=== PATIENT | male | born 1940 | race Asian ===

== ENCOUNTER 2021-07-28 04:41 | Emergency (ER) | payer OTHER ==
[~2021-07-28] VITALS: Ht 162.6 cm; Wt 62.1 kg
--- NOTE | 2021-07-28 05:00 | NUR ---
seen by dr garcia
[2021-07-28 05:01] VITALS: BP_SYST 155
[2021-07-28] MEDS ORDERED: NACL 0.9% 1,000 ML IV ONE (05:15)
[2021-07-28] MEDS ORDERED: MORPHINE 4 MG INJ. 4 MG/ML VIAL IVP ONE (05:15)
[2021-07-28] MEDS ORDERED: KETOROLAC TROMETHAMINE 30 MG VIAL IVP ONE (05:15)
[2021-07-28 06:15] LABS: BASOPHILS # (AUTO) 0.1 K/uL (0.0-0.2); BASOPHILS % (AUTO) 0.7 % (0.0-2.0); EOSINOPHILS % (AUTO) 0.1 % (0.0-4.0); HEMATOCRIT 32.7 % (36-54); HEMOGLOBIN 10.8 g/dL (14.0-18.0); LYMPHOCYTES # (AUTO) 0.3 K/uL (1.0-5.5); LYMPHOCYTES % (AUTO) 2.7 % (20.5-51.5); MEAN CORPUSCULAR HEMOGLOBIN 28 pg (27-31); MEAN CORPUSCULAR HGB CONC 33 % (32-36); MEAN CORPUSCULAR VOLUME 84 fL (79.0-98.0); MONOCYTES # (AUTO) 0.6 K/uL (0.0-1.0); NEUTROPHILS # (AUTO) 10.1 K/uL (1.8-7.7); NEUTROPHILS % (AUTO) 91.5 % (40.0-70.0); PLATELET COUNT (AUTO) 142 K/uL (130-430); RED BLOOD CELL COUNT(AUTO) 3.91 MIL/uL (4.2-6.2); RED CELL DISTRIBUTION WIDTH 14.3 % (9.0-15.0)
[2021-07-28 06:20] LABS: ANION GAP 12 (5-15); CALCIUM 8.9 mg/dL (8.4-11.0); CHLORIDE 100 mmol/L (98-107); CREATININE 1.46 mg/dL (0.55-1.30); GLUCOSE 121 mg/dL (70-99); POTASSIUM 3.6 mmol/L (3.5-5.1); SODIUM SERUM 137 mmol/L (136-145); UREA NITROGEN, BLOOD 31 mg/dL (8-21)
[2021-07-28 06:25] LABS: ALANINE AMINOTRANSFERASE 38 U/L (12-78); ALBUMIN 3.3 g/dL (3.4-4.8); ASPARTATE AMINOTRANSFERASE 30 U/L (10-37); BILIRUBIN,URINE NEGATIVE (NEGATIVE); BLOOD, URINE 3+ (NEGATIVE); CLARITY/URINE CLEAR (CLEAR); COLOR,URINE YELLOW (YELLOW); GLUCOSE,URINE NEGATIVE (NEGATIVE); KETONES,URINE NEGATIVE (NEGATIVE); LEUKOCYTE ESTERASE ,URINE 2+ (NEGATIVE); NITRITE, URINE NEGATIVE (NEGATIVE); PROTEIN URINE 1+ (NEGATIVE); TOTAL BILIRUBIN 0.3 mg/dL (0.0-1.0); UROBILINOGEN,URINE 0.2 (0.2-1.0)
[2021-07-28 06:53] LABS: BACTERIA,URINE FEW /HPF (None Seen); WBC,URINE 20-50 /HPF (0-3)
[2021-07-28 06:54] LABS: MUCUS,URINE None Seen /LPF (None Seen)
--- NOTE | 2021-07-28 07:00 | NUR ---
PT CAME IN FROM HOME C/O LEFT SIDED ABD PAIN RADIATING TO LEFT SIDED FLANK STARTING AROUND 0200. PT REPORTS HX OF KIDNEY STONES. PT IS AMBULATORY, AAOX4, VSS
[2021-07-28] MEDS ORDERED: IBUP-1969 PO (08:24)
[2021-07-28] MEDS ORDERED: HYDR-3917 PO (08:24)
--- NOTE | 2021-07-28 08:55 | NUR ---
Patient given written and verbal discharge instructions and verbalizes understanding. ER MD discussed with patient the results and treatment provided. Patient in stable condition. ID arm band removed. Rx of given. Patient educated on pain management and to follow up with PMD. Pain Scale 0/10. Opportunity for questions provided and answered. Medication side effect fact sheet provided.
[2021-07-28 09:16] VITALS: BP_SYST 135
== END 2021-07-28 08:55 | disposition home or self-care (01) ==
LOC: SED 04:41
DX: N23 Unspecified renal colic (principal); I10 Essential (primary) hypertension; E11.9 Type 2 diabetes mellitus without complications; Z79.899 Other long term (current) drug therapy
CPT/HCPCS: 36415; 74176; 76376; 80053; 81000; 82962; 85025; 87086; 96361; 96374; 96375; 99284; J1885; J2270; J7030

== ENCOUNTER 2021-07-31 19:12 | Inpatient (IN) | payer OTHER, SELFPAY ==
[~2021-07-31] VITALS: Ht 162.6 cm; Wt 62.1 kg
[~2021-07-31 19:12] MED LIST: HYDR-3917 PO; IBUP-1969 PO
[2021-07-31 20:24] VITALS: BP_SYST 145
--- NOTE | 2021-07-31 20:28 | NUR ---
Patient triaged and placed in waiting room. VSS and patient appears in no acute distress at this time. Accompanied by family, awaiting available bed, and MD notified of need for MSE.
[2021-07-31 21:29] LABS: BASOPHILS % (AUTO) 0.2 % (0.0-2.0); EOSINOPHILS % (AUTO) 0.2 % (0.0-4.0); HEMATOCRIT 32.2 % (36-54); HEMOGLOBIN 10.6 g/dL (14.0-18.0); LYMPHOCYTES # (AUTO) 0.3 K/uL (1.0-5.5); LYMPHOCYTES % (AUTO) 3.5 % (20.5-51.5); MEAN CORPUSCULAR HEMOGLOBIN 28 pg (27-31); MEAN CORPUSCULAR HGB CONC 33 % (32-36); MEAN CORPUSCULAR VOLUME 84 fL (79.0-98.0); MONOCYTES # (AUTO) 0.7 K/uL (0.0-1.0); MONOCYTES % (AUTO) 7.7 % (1.7-9.3); NEUTROPHILS # (AUTO) 8.6 K/uL (1.8-7.7); NEUTROPHILS % (AUTO) 88.4 % (40.0-70.0); PLATELET COUNT (AUTO) 110 K/uL (130-430); RED BLOOD CELL COUNT(AUTO) 3.84 MIL/uL (4.2-6.2); RED CELL DISTRIBUTION WIDTH 15.2 % (9.0-15.0); WHITE BLOOD COUNT (AUTO) 9.7 K/uL (4.8-10.8)
[2021-07-31 21:54] LABS: BILIRUBIN,URINE NEGATIVE (NEGATIVE); BLOOD, URINE 3+ (NEGATIVE); COLOR,URINE YELLOW (YELLOW); GLUCOSE,URINE NEGATIVE (NEGATIVE); KETONES,URINE NEGATIVE (NEGATIVE); LEUKOCYTE ESTERASE ,URINE 2+ (NEGATIVE); NITRITE, URINE NEGATIVE (NEGATIVE); PROTEIN URINE 2+ (NEGATIVE); UROBILINOGEN,URINE 0.2 (0.2-1.0)
[2021-07-31 21:57] LABS: CLARITY/URINE SLIGHTLY CLOUDY (CLEAR)
[2021-07-31 22:00] LABS: ANION GAP 13 (5-15); CALCIUM 8.6 mg/dL (8.4-11.0); CHLORIDE 98 mmol/L (98-107); CREATININE 3.09 mg/dL (0.55-1.30); GLUCOSE 103 mg/dL (70-99); POTASSIUM 3.2 mmol/L (3.5-5.1); SODIUM SERUM 133 mmol/L (136-145); UREA NITROGEN, BLOOD 67 mg/dL (8-21)
[2021-07-31 22:05] LABS: BACTERIA,URINE MODERATE /HPF (None Seen); RBC,URINE 20-50 /HPF (0-3); WBC,URINE 50-80 /HPF (0-3)
[2021-07-31 22:06] LABS: MUCUS,URINE None Seen /LPF (None Seen); URINE AMORPHOUS URATE 2+ /HPF (None Seen)
--- NOTE | 2021-07-31 22:30 | NUR ---
Patient resting quietly. No acute distress noted. Still waiting for available bed
--- NOTE | 2021-08-01 01:38 | NUR ---
ER in triage examining patient.
[2021-08-01] MEDS ORDERED: NACL 0.9% 1,000 ML IV ONE (01:45)
[2021-08-01] MEDS ORDERED: cefTRIAXone 1 GM IVPB PREMIX 50 ML IV ONE ×2 (01:45→05:15)
--- NOTE | 2021-08-01 03:54 | NUR ---
Patient wheeled to bed 1 for further treatment
--- NOTE | 2021-08-01 04:10 | NUR ---
Received report from DELANEY will. Pt moved from WR to bed 1 at this time with c/o bladder/abd distention worsening today. Pt reports able to void, last time voided was 03:30 am and urine sent to lab. Will initiate pending orders. Safety measures in place. Vss.
--- NOTE | 2021-08-01 04:26 | NUR ---
Multiple attempts to obtain urinary bladder volume. Results vary from 15 mL - 128 mL with hightligted areas to outer corners of all 4 quadrants of bladder scan display. Pt has a scar from pubis to lower abdomen s/p radical prostatectomy. Dr. Garcia notified of findings. New order to place F/C to drain bladder.
--- NOTE | 2021-08-01 04:30 | NUR ---
18 Fr F/c inserted and pt tolerated well. Output of 36 ml of clear yellow urine. Dr. Garcia made aware. No new orders provided. IVF and antibiotics infusing. Abd remains firm and distended. Pt reports this is not normal to pt. MD aware.
--- NOTE | 2021-08-01 06:17 | NUR ---
Pt is sleeping in nad. vss. Resp are e/u. Plan to admit, awaiting for admission bed. Safety measures in [facility].
[2021-08-01] MEDS ORDERED: NACL 0.9% 1,000 ML IV SCH (08:00)
[2021-08-01] MEDS ORDERED: ACETAMINOPHEN 325 MG TABLET PO PRN (08:00)
[2021-08-01] MEDS ORDERED: ALBUTEROL SULFATE 0.083% 2.5 MG/3 ML VIAL.NEB INH PRN (08:00)
[2021-08-01] MEDS ORDERED: HYDROcodone/ACETAMIN 5-325 MG TAB (NORCO/ VICODIN) PO PRN (08:15)
[2021-08-01] MEDS ORDERED: NALOXONE HCL 0.4 MG/ML AMP (NARCAN) IVP PRN (08:15)
--- NOTE | 2021-08-01 08:40 | NUR ---
Patient will be admitted to care of Dr. Ochoa. Admitted to Tele unit. Will go to room 130A. Belongings list completed. Complete and up to date summary report printed. SBAR report to be given at bedside with opportunity for questions.
--- NOTE | 2021-08-01 08:47 | NUR ---
CONSULTATION PAGED/CALLED Reason for Consultation: [] RENAL FAIL Person Who was Notified: [] DR RESTREPO Consulting Physician: [] DR RESTREPO Principal Technologist Specialty: [] NEPHRO Ordering Physician: [] DR COPE
[2021-08-01] MEDS: ASPIRIN 325 MG TABLET PO SCH ×2 (09:00→10:14)
--- NOTE | 2021-08-01 09:00 | NUR ---
ADMISSION NOTE Received patient from ER via gurney. Patient admitted with diagnosis of Renal Failure. Patient is awake, alert, oriented X 4. Patient oriented to hospital room, call light, toileting, pain management and safety-teach back done. Patient informed that I will be his nurse and that their room number is 130A. Personal belongings checked and Belongings List documented. Call light within reach.
[2021-08-01 09:55] VITALS: BP_SYST 139
[2021-08-01] MEDS ORDERED: DEXTROSE 50% JECT 50 ML DISP.SYRIN IVP PRN (10:15)
[2021-08-01 10:24] LABS: BASOPHILS % (AUTO) 0.2 % (0.0-2.0); EOSINOPHILS % (AUTO) 0.1 % (0.0-4.0); HEMATOCRIT 33.1 % (36-54); HEMOGLOBIN 10.9 g/dL (14.0-18.0); LYMPHOCYTES # (AUTO) 0.6 K/uL (1.0-5.5); LYMPHOCYTES % (AUTO) 5.8 % (20.5-51.5); MEAN CORPUSCULAR HEMOGLOBIN 28 pg (27-31); MEAN CORPUSCULAR HGB CONC 33 % (32-36); MEAN CORPUSCULAR VOLUME 85 fL (79.0-98.0); MONOCYTES # (AUTO) 0.9 K/uL (0.0-1.0); MONOCYTES % (AUTO) 9.8 % (1.7-9.3); NEUTROPHILS # (AUTO) 8.1 K/uL (1.8-7.7); NEUTROPHILS % (AUTO) 84.1 % (40.0-70.0); PLATELET COUNT (AUTO) 112 K/uL (130-430); RED BLOOD CELL COUNT(AUTO) 3.92 MIL/uL (4.2-6.2); RED CELL DISTRIBUTION WIDTH 15.4 % (9.0-15.0); WHITE BLOOD COUNT (AUTO) 9.6 K/uL (4.8-10.8)
[2021-08-01 10:36] LABS: ALANINE AMINOTRANSFERASE 47 U/L (12-78); ALBUMIN 2.5 g/dL (3.4-4.8); ANION GAP 16 (5-15); ASPARTATE AMINOTRANSFERASE 50 U/L (10-37); CALCIUM 8.5 mg/dL (8.4-11.0); CHLORIDE 103 mmol/L (98-107); CREATININE 2.83 mg/dL (0.55-1.30); GLUCOSE 95 mg/dL (70-99); POTASSIUM 3.3 mmol/L (3.5-5.1); SODIUM SERUM 136 mmol/L (136-145); TOTAL BILIRUBIN 0.4 mg/dL (0.0-1.0); UREA NITROGEN, BLOOD 67 mg/dL (8-21)
[2021-08-01] MEDS ORDERED: NIFE-55 PO (11:58)
[2021-08-01] MEDS ORDERED: LIP80 PO (11:58)
[2021-08-01] MEDS ORDERED: PRO40 PO (11:59)
[2021-08-01] MEDS ORDERED: ASA81 PO (12:01)
[2021-08-01] MEDS ORDERED: MONT-40 PO (12:01)
[2021-08-01] MEDS ORDERED: VITD400 PO (12:02)
--- NOTE | 2021-08-01 12:35 | NUR ---
CONSULTATION PAGED/CALLED Reason for Consultation: [] RENAL COLIC Person Who was Notified: [] ROGER Consulting Physician: [] DR Hannah MAGANA [employer] Coach Specialty: [] UROLOGIST Ordering Physician: [] DR COPE
[2021-08-01] MEDS: INSULIN REGULAR, HUMAN 100 UNITS/ML, 10 ML VIAL (humuLIN R) SUBCUT PRN (13:01)
[2021-08-01] MEDS: NACL 0.9% 1,000 ML IV SCH (15:46)
[2021-08-01 16:30] VITALS: BP_SYST 148
--- NOTE | 2021-08-01 18:45 | NUR ---
Closing notes: Pt A/Ox4, sitting at bedside, eating dinner. No s/s or respiratory or cardiac distress. IV fluids to L hand running at ordered rate, site patent. Pardo in place, draining yellow/william urine to gravity. Fall and safety precautions in place. Call light with in reach, will endorse tonight shift.
[2021-08-01 19:00] VITALS: BP_SYST 163
[2021-08-01 20:00] VITALS: BP_SYST 163
[2021-08-02] MEDS: cefTRIAXone 1 GM IVPB PREMIX 50 ML IV SCH ×2 (00:22→21:24)
[2021-08-02 10:00] VITALS: BP_SYST 149
[2021-08-02] MEDS: ASPIRIN 325 MG TABLET PO SCH (11:49)
[2021-08-02] MEDS: NACL 0.9% 1,000 ML IV SCH (11:51)
--- NOTE | 2021-08-02 17:16 | NUR ---
PT IS REFUSING TO HAVE CT AT THIS TIME JAZMYNE NEGRON NOTIFIED. Addendum: 08/02/21 at 1853 by Pete Abdi RN 1600: CALLED TAB TO INFORM THE TECH LABS WERE NOT DRAWN AT 1400. SHE STATED SHE WOULD LOOK AT THE ORDER 1745: LABS STILL HAVE NOT BEEN DRAWN, ESCALATED IT TO [facility].
[2021-08-02 19:05] VITALS: BP_SYST 165
--- NOTE | 2021-08-02 20:55 | NUR ---
LABORATORY DRAW REQUEST CALL TO LAB AND DELIVERY OF FACE SHEET. REQUEST TO [employer]O [employer] FRIER TO UPDATE ROOM NUMBER FROM 109 TO 131A PER LAB REQUEST. SETH HE RN
[2021-08-02 21:10] VITALS: BP_SYST 182
--- NOTE | 2021-08-02 21:11 | NUR ---
REQUESTS LITHOTRIPSY INPATIENT IF FACILITY IS ABLE TO PERFORM. OTHERWISE WANTS TO HAVE CT STUDY RIGHT BEFORE HIS PROCEDURE BECAUSE HE SAYS THE STONE COULD MOVE BETWEEN TEST TIME NEXT WEEK. SETH HE RN
--- NOTE | 2021-08-02 23:10 | NUR ---
DIETARY PREFERENCE PER PATIENT FOR REGISTERED DIETITIAN IS FRESH FRUIT IF AVAILABLE AND OK FOR CURRENT DIET. SETH HE RN
[2021-08-02 23:17] LABS: BASOPHILS % (AUTO) 0.4 % (0.0-2.0); EOSINOPHILS # (AUTO) 0.1 K/uL (0.0-0.4); EOSINOPHILS % (AUTO) 1.5 % (0.0-4.0); HEMATOCRIT 28.5 % (36-54); HEMOGLOBIN 9.5 g/dL (14.0-18.0); LYMPHOCYTES # (AUTO) 0.6 K/uL (1.0-5.5); LYMPHOCYTES % (AUTO) 9.8 % (20.5-51.5); MEAN CORPUSCULAR HEMOGLOBIN 28 pg (27-31); MEAN CORPUSCULAR HGB CONC 33 % (32-36); MEAN CORPUSCULAR VOLUME 83 fL (79.0-98.0); MONOCYTES % (AUTO) 15.2 % (1.7-9.3); NEUTROPHILS # (AUTO) 4.7 K/uL (1.8-7.7); NEUTROPHILS % (AUTO) 73.1 % (40.0-70.0); PLATELET COUNT (AUTO) 111 K/uL (130-430); RED BLOOD CELL COUNT(AUTO) 3.44 MIL/uL (4.2-6.2); RED CELL DISTRIBUTION WIDTH 15.7 % (9.0-15.0); WHITE BLOOD COUNT (AUTO) 6.4 K/uL (4.8-10.8)
[2021-08-02 23:30] LABS: ALANINE AMINOTRANSFERASE 44 U/L (12-78); ANION GAP 10 (5-15); ASPARTATE AMINOTRANSFERASE 40 U/L (10-37); CALCIUM 7.9 mg/dL (8.4-11.0); CHLORIDE 107 mmol/L (98-107); GLUCOSE 194 mg/dL (70-99); POTASSIUM 3.5 mmol/L (3.5-5.1); SODIUM SERUM 138 mmol/L (136-145); TOTAL BILIRUBIN 0.3 mg/dL (0.0-1.0); UREA NITROGEN, BLOOD 46 mg/dL (8-21)
[2021-08-02 23:55] VITALS: BP_SYST 162
[2021-08-03] MEDS: INSULIN REGULAR, HUMAN 100 UNITS/ML, 10 ML VIAL (humuLIN R) SUBCUT PRN (00:17)
[2021-08-03] MEDS: NACL 0.9% 1,000 ML IV SCH (06:06)
--- NOTE | 2021-08-03 07:12 | NUR ---
HANDOFF WITH DELANEY JOYNER. SETH HE, DELANEY Addendum: 08/03/21 at 0804 by Michael Abdi RN DIAM[facility] BALTAZAR ABOVE, REPORT GIVEN TO SIERRA
[2021-08-03 08:00] VITALS: BP_SYST 158
[2021-08-03] MEDS: ASPIRIN 325 MG TABLET PO SCH (09:02)
[2021-08-03 12:00] VITALS: BP_SYST 162
[2021-08-03] MEDS ORDERED: SODIUM PHOSPHATE,MONO-DIBASIC 133 ML ENEMA RC ONE (12:45)
[2021-08-03] MEDS: hydrALAZINE HCL 10 MG TABLET PO SCH ×3 (13:02→23:42)
[2021-08-03 16:00] VITALS: BP_SYST 156
--- NOTE | 2021-08-03 18:03 | NUR ---
Dietitian Recommendations * Cardiac, CCHO diet * Encourage increase PO intakes * Consider Glucerna BID if PO intakes decline LP, RD Please refer to Nutrition Assessment for details. Addendum: 08/03/21 at [address] Amended: Links added.
[2021-08-03 20:00] VITALS: BP_SYST 167
[2021-08-03] MEDS: cefTRIAXone 1 GM IVPB PREMIX 50 ML IV SCH (22:45)
[2021-08-04] VITALS: BP_SYST 142
[2021-08-04] MEDS: NACL 0.9% 1,000 ML IV SCH ×2 (03:00→23:00)
[2021-08-04] MEDS: hydrALAZINE HCL 10 MG TABLET PO SCH ×3 (06:37→18:08)
[2021-08-04 08:00] VITALS: BP_SYST 140
[2021-08-04 08:58] LABS: BASOPHILS % (AUTO) 0.7 % (0.0-2.0); EOSINOPHILS # (AUTO) 0.1 K/uL (0.0-0.4); EOSINOPHILS % (AUTO) 1.7 % (0.0-4.0); HEMATOCRIT 28.2 % (36-54); HEMOGLOBIN 9.5 g/dL (14.0-18.0); LYMPHOCYTES # (AUTO) 0.9 K/uL (1.0-5.5); LYMPHOCYTES % (AUTO) 13.3 % (20.5-51.5); MEAN CORPUSCULAR HEMOGLOBIN 28 pg (27-31); MEAN CORPUSCULAR HGB CONC 34 % (32-36); MEAN CORPUSCULAR VOLUME 83 fL (79.0-98.0); MONOCYTES # (AUTO) 0.8 K/uL (0.0-1.0); MONOCYTES % (AUTO) 11.7 % (1.7-9.3); NEUTROPHILS # (AUTO) 4.7 K/uL (1.8-7.7); NEUTROPHILS % (AUTO) 72.6 % (40.0-70.0); PLATELET COUNT (AUTO) 113 K/uL (130-430); RED BLOOD CELL COUNT(AUTO) 3.41 MIL/uL (4.2-6.2); RED CELL DISTRIBUTION WIDTH 15.4 % (9.0-15.0); WHITE BLOOD COUNT (AUTO) 6.5 K/uL (4.8-10.8)
[2021-08-04] MEDS: ASPIRIN 81 MG TAB.CHEW PO SCH (09:45)
[2021-08-04 11:38] LABS: ANION GAP 12 (5-15); CHLORIDE 108 mmol/L (98-107); CREATININE 1.64 mg/dL (0.55-1.30); GLUCOSE 102 mg/dL (70-99); POTASSIUM 3.2 mmol/L (3.5-5.1); SODIUM SERUM 139 mmol/L (136-145); UREA NITROGEN, BLOOD 31 mg/dL (8-21)
[2021-08-04] MEDS: INSULIN REGULAR, HUMAN 100 UNITS/ML, 10 ML VIAL (humuLIN R) SUBCUT PRN ×2 (13:47→17:51)
[2021-08-04 16:00] VITALS: BP_SYST 139
--- NOTE | 2021-08-04 18:59 | NUR ---
Closing notes Pt A/Ox4, sitting at bedside, eating dinner. No s/s or respiratory or cardiac distress. IV fluids to L hand running at ordered rate, site patent. Pardo in place, draining yellow urine to gravity. Fall and safety precautions in place. Call light with in reach, will endorse tonight shift.
[2021-08-04 20:00] VITALS: BP_SYST 159
--- NOTE | 2021-08-04 20:25 | NUR ---
paged Dr. Hawkins [phone]
[2021-08-04] MEDS: cefTRIAXone 1 GM IVPB PREMIX 50 ML IV SCH (23:12)
[2021-08-05] MEDS: hydrALAZINE HCL 10 MG TABLET PO SCH ×4 (00:06→17:17)
[2021-08-05] MEDS: INSULIN REGULAR, HUMAN 100 UNITS/ML, 10 ML VIAL (humuLIN R) SUBCUT PRN ×2 (00:16→17:24)
[2021-08-05] MEDS ORDERED: guaiFENesin/DEXTROMETHORPHAN 10 ML UDC PO PRN (01:15)
[2021-08-05 04:06] VITALS: BP_SYST 132
[2021-08-05 04:09] VITALS: BP_SYST 151
[2021-08-05 08:00] VITALS: BP_SYST 123
--- NOTE | 2021-08-05 08:00 | NUR ---
Morning rounds: Pt A/Ox4, sitting at bedside, eating breakfast then NPO for procedure this afternoon. No s/s or respiratory or cardiac distress. IV fluids to L hand running at ordered rate, site patent. Pardo in place, draining yellow urine to gravity. Fall and safety precautions in place. Call light with in reach, will continue to monitor.
[2021-08-05] MEDS: ASPIRIN 81 MG TAB.CHEW PO SCH (08:57)
[2021-08-05 12:00] VITALS: BP_SYST 151
--- NOTE | 2021-08-05 14:25 | NUR ---
SURGERY CANCELED PATIENT PASSED STONE, PER DR COSTELLO OFFICE PROCEDURE CANCELED
[2021-08-05 16:06] VITALS: BP_SYST 157
--- NOTE | 2021-08-05 16:42 | NUR ---
MD KAPADIA SPOKE WITH KHADAR AT DR COSTELLO OFFICE, OK TO JUAN SANDS PER DR MAGANA
[2021-08-05 16:46] VITALS: BP_SYST 152
--- NOTE | 2021-08-05 16:47 | NUR ---
Removed Pardo: Removed Pardo intact, pt educated on voiding urine to be D/C home.
--- NOTE | 2021-08-05 17:40 | NUR ---
RN note: Pt voided 100ml of yellow urine. Will D/C home per orders.
== END 2021-08-05 18:49 | disposition home or self-care (01) | DRG 683 ==
LOC: SED 19:12 → STU 08-01 05:16 → SMU 08-01 08:40 → STU 08-01 08:40 → SMU 08-01 10:14
PROVIDERS: ADMIT Internal Medicine Hospice and Palliative Medicine; ATTEND Internal Medicine Hospice and Palliative Medicine
DX: N17.9 Acute kidney failure, unspecified (principal); N20.2 Calculus of kidney with calculus of ureter; D64.9 Anemia, unspecified; N13.6 Pyonephrosis; Z20.822 Contact with and (suspected) exposure to COVID-19; Z79.891 Long term (current) use of opiate analgesic; Z79.899 Other long term (current) drug therapy; Z79.1 Long term (current) use of non-steroidal anti-inflammatories (NSAID); Z79.82 Long term (current) use of aspirin; Z87.442 Personal history of urinary calculi; Z95.1 Presence of aortocoronary bypass graft
CPT/HCPCS: 36415; 74018; 76376; 76770; 80048; 80053; 81000; 82962; 83605; 85025; 87040; 87086; 93005; 94760; 99285; J0696; J1815; J2310; J7613

== ENCOUNTER 2023-04-11 01:22 | Inpatient (IN) | payer OTHER ==
[2023-04-11] VITALS (12 sets, daily range): BP systolic 118–141; PULSE 18–96; RESP 16–22; TEMP 96.3–100.2; O2SAT 95–100
[~2023-04-11] VITALS: Ht 162.6 cm; Wt 65.3 kg
[~2023-04-11 01:22] MED LIST changes: +ASA81 PO; -IBUP-1969 PO; +LIP80 PO; +MONT-40 PO; +NIFE-55 PO; +PRO40 PO; +VITD400 PO
[2023-04-11 02:02] LABS: BASOPHILS % (AUTO) 0.5 % (0.0-2.0); EOSINOPHILS % (AUTO) 0.4 % (0.0-4.0); HEMATOCRIT 32.1 % (36-54); HEMOGLOBIN 10.7 g/dL (14.0-18.0); LYMPHOCYTES # (AUTO) 0.9 K/uL (1.0-5.5); LYMPHOCYTES % (AUTO) 8.9 % (20.5-51.5); MEAN CORPUSCULAR HEMOGLOBIN 28 pg (27-31); MEAN CORPUSCULAR HGB CONC 33 % (32-36); MEAN CORPUSCULAR VOLUME 85 fL (79.0-98.0); MONOCYTES # (AUTO) 0.6 K/uL (0.0-1.0); NEUTROPHILS # (AUTO) 8.3 K/uL (1.8-7.7); NEUTROPHILS % (AUTO) 84.2 % (40.0-70.0); PLATELET COUNT (AUTO) 143 K/uL (130-430); RED BLOOD CELL COUNT(AUTO) 3.76 MIL/uL (4.2-6.2); RED CELL DISTRIBUTION WIDTH 15.2 % (9.0-15.0); WHITE BLOOD COUNT (AUTO) 9.8 K/uL (4.8-10.8)
[2023-04-11 02:18] LABS: INR 1.1 (0.80-1.20); PROTHROMBIN TIME 10.9 SECS (9.5-12.5)
[2023-04-11] MEDS ORDERED: cefTRIAXone 1 GM VIAL IM ONE (02:45)
[2023-04-11] MEDS ORDERED: NACL 0.9% 2,000 ML IV ONE (02:45)
[2023-04-11 03:03] LABS: INFLUENZA TYPE A negative (NEGATIVE); INFLUENZA TYPE B NEGATIVE (NEGATIVE)
[2023-04-11 03:07] LABS: ANION GAP 15 (5-15); CALCIUM 7.9 mg/dL (8.4-11.0); CARBON DIOXIDE 20 mmol/L (23-29); CHLORIDE 97 mmol/L (98-107); CREATININE 2.73 mg/dL (0.55-1.30); GLUCOSE 103 mg/dL (74-106); POTASSIUM 4.2 mmol/L (3.5-5.1); SODIUM SERUM 132 mmol/L (136-145); UREA NITROGEN, BLOOD 48 mg/dL (8-21)
[2023-04-11 03:14] LABS: ALANINE AMINOTRANSFERASE 37 U/L (12-78); ALBUMIN 2.9 g/dL (3.4-4.8); ASPARTATE AMINOTRANSFERASE 33 U/L (10-37); TOTAL BILIRUBIN 0.6 mg/dL (0.0-1.0); TOTAL PROTEIN, SERUM 6.8 g/dL (6.4-8.3)
[2023-04-11] MEDS ORDERED: cefTRIAXone 1 GM in D5W 50 ML IV ONE (03:15)
[2023-04-11] MEDS ORDERED: cefTRIAXone 1 GM VIAL ONE (04:33)
[2023-04-11] MEDS ORDERED: ASPIRIN 325 MG TABLET ONE (05:23)
[2023-04-11] MEDS ORDERED: ASPIRIN 325 MG TABLET PO ONE (05:30)
[2023-04-11] MEDS ORDERED: LORazepam 2 MG/ML VIAL IVP PRN (07:45)
[2023-04-11] MEDS ORDERED: ACETAMINOPHEN 325 MG TABLET PO PRN (07:45)
[2023-04-11] MEDS ORDERED: ONDANSETRON HCL 4 MG/2 ML VIAL IVP PRN (07:45)
[2023-04-11] MEDS ORDERED: HYDROcodone/ACETAMIN 10-325 MG TAB PO PRN (07:45)
[2023-04-11] MEDS ORDERED: NALOXONE HCL 0.4 MG/ML AMP (NARCAN) IVP PRN ×2 (07:45)
[2023-04-11] MEDS ORDERED: HYDROcodone/ACETAMIN 5-325 MG TAB (NORCO/ VICODIN) PO PRN (07:45)
[2023-04-11] MEDS ORDERED: NACL 0.9% 1,000 ML IV SCH (08:00)
[2023-04-11] MEDS: NIFEdipine 30 MG TAB.ER.24 PO SCH ×3 (09:00→20:51)
[2023-04-11] MEDS: CHOLECALCIFEROL (VITAMIN D-3) 400 UNIT TABLET PO SCH (09:38)
[2023-04-11] MEDS: ASPIRIN 81 MG TAB.CHEW PO SCH (09:38)
[2023-04-11] MEDS: PANTOPRAZOLE SODIUM 40 MG TAB PO SCH (09:38)
[2023-04-11] MEDS: ALBUTEROL SULFATE 0.083% 2.5 MG/3 ML VIAL.NEB INH SCH ×4 (11:09→23:00)
[2023-04-11] MEDS: IPRATROPIUM BROM 0.5 MG/2.5 ML VIAL.NEB (ATROVENT) INH SCH ×4 (11:10→23:00)
[2023-04-11] MEDS: NACL 0.9% 1,000 ML IV SCH (12:00)
[2023-04-11] MEDS ORDERED: NOR10 PO (16:15)
[2023-04-11] MEDS ORDERED: LOSA-413 PO (16:15)
[2023-04-11] MEDS ORDERED: CARVEDILOL 6.25 MG TABLET (COREG) PO ONE (16:30)
[2023-04-11] MEDS: MONTELUKAST 10 MG TABLET PO SCH (18:00)
[2023-04-11] MEDS: ATORVASTATIN 20 MG TABLET PO SCH (20:50)
[2023-04-11] MEDS: CARVEDILOL 6.25 MG TABLET (COREG) PO SCH (20:51)
[2023-04-12] VITALS (13 sets, daily range): BP systolic 91–143; PULSE 62–88; RESP 17–20; TEMP 96.5–97.8; O2SAT 95–100
[2023-04-12] MEDS: IPRATROPIUM BROM 0.5 MG/2.5 ML VIAL.NEB (ATROVENT) INH SCH ×6 (03:00→23:00)
[2023-04-12] MEDS: ALBUTEROL SULFATE 0.083% 2.5 MG/3 ML VIAL.NEB INH SCH ×6 (03:00→23:00)
[2023-04-12] MEDS: NACL 0.9% 1,000 ML IV SCH ×2 (03:59→15:36)
[2023-04-12] MEDS: cefTRIAXone 1 GM IVPB PREMIX 50 ML IV SCH (05:20)
[2023-04-12 06:33] LABS: BASOPHILS % (AUTO) 0.5 % (0.0-2.0); EOSINOPHILS # (AUTO) 0.3 K/uL (0.0-0.4); EOSINOPHILS % (AUTO) 3.5 % (0.0-4.0); HEMATOCRIT 32.3 % (36-54); HEMOGLOBIN 10.4 g/dL (14.0-18.0); LYMPHOCYTES # (AUTO) 0.7 K/uL (1.0-5.5); LYMPHOCYTES % (AUTO) 10.2 % (20.5-51.5); MEAN CORPUSCULAR HEMOGLOBIN 28 pg (27-31); MEAN CORPUSCULAR HGB CONC 32 % (32-36); MEAN CORPUSCULAR VOLUME 87 fL (79.0-98.0); MONOCYTES # (AUTO) 0.8 K/uL (0.0-1.0); MONOCYTES % (AUTO) 11.3 % (1.7-9.3); NEUTROPHILS # (AUTO) 5.5 K/uL (1.8-7.7); NEUTROPHILS % (AUTO) 74.5 % (40.0-70.0); PLATELET COUNT (AUTO) 137 K/uL (130-430); RED BLOOD CELL COUNT(AUTO) 3.72 MIL/uL (4.2-6.2); RED CELL DISTRIBUTION WIDTH 15.1 % (9.0-15.0)
[2023-04-12 07:17] LABS: ANION GAP 13 (5-15); CALCIUM 8.1 mg/dL (8.4-11.0); CARBON DIOXIDE 20 mmol/L (23-29); CHLORIDE 107 mmol/L (98-107); CREATININE 2.29 mg/dL (0.55-1.30); PHOSPHORUS 3.8 mg/dL (2.7-4.5); POTASSIUM 3.8 mmol/L (3.5-5.1); SODIUM SERUM 140 mmol/L (136-145); UREA NITROGEN, BLOOD 46 mg/dL (8-21)
[2023-04-12 07:36] LABS: GLUCOSE 48 mg/dL (74-106)
[2023-04-12] MEDS ORDERED: GLUCOSE (DEXTROSE) ORAL GEL -Adults PO PRN (08:00)
[2023-04-12] MEDS ORDERED: DEXTROSE 50% JECT 50 ML DISP.SYRIN IVP PRN (08:00)
[2023-04-12] MEDS ORDERED: D5W 1,000 ML IV PRN (08:00)
[2023-04-12 08:01] LABS: WHITE BLOOD COUNT (AUTO) 7.3 K/uL (4.8-10.8)
[2023-04-12] MEDS: CARVEDILOL 6.25 MG TABLET (COREG) PO SCH ×2 (09:00→20:50)
[2023-04-12] MEDS: ASPIRIN 81 MG TAB.CHEW PO SCH (09:12)
[2023-04-12] MEDS: PANTOPRAZOLE SODIUM 40 MG TAB PO SCH (09:12)
[2023-04-12] MEDS: CHOLECALCIFEROL (VITAMIN D-3) 400 UNIT TABLET PO SCH (09:12)
[2023-04-12] MEDS: NIFEdipine 30 MG TAB.ER.24 PO SCH (09:13)
[2023-04-12 09:22] LABS: CLARITY/URINE CLOUDY (CLEAR); COLOR,URINE YELLOW (YELLOW); PROTEIN URINE 1+ (NEGATIVE)
[2023-04-12 09:23] LABS: BILIRUBIN,URINE NEGATIVE (NEGATIVE); BLOOD, URINE TRACE (NEGATIVE); GLUCOSE,URINE 1+ (NEGATIVE); KETONES,URINE NEGATIVE (NEGATIVE); LEUKOCYTE ESTERASE ,URINE TRACE (NEGATIVE)
[2023-04-12 09:24] LABS: NITRITE, URINE NEGATIVE (NEGATIVE); UROBILINOGEN,URINE 0.2 (0.2-1.0)
[2023-04-12 09:58] LABS: BACTERIA,URINE FEW /HPF (None Seen); MUCUS,URINE 1+ /LPF (None Seen); RBC,URINE 0-3 /HPF (0-3); WBC,URINE 0-3 /HPF (0-3)
[2023-04-12] MEDS: guaiFENesin 200 MG/10 ML UDC PO PRN ×2 (15:54→23:52)
[2023-04-12] MEDS: VANCOMYCIN HCL 500 MG in NS 100 ML IV SCH (17:06)
[2023-04-12] MEDS: MONTELUKAST 10 MG TABLET PO SCH (17:24)
[2023-04-12] MEDS: ATORVASTATIN 20 MG TABLET PO SCH (20:50)
[2023-04-13] VITALS (10 sets, daily range): BP systolic 124–150; PULSE 57–70; RESP 17–18; TEMP 96.8–98.6; O2SAT 98–100
[2023-04-13] MEDS: ALBUTEROL SULFATE 0.083% 2.5 MG/3 ML VIAL.NEB INH SCH ×6 (03:00→23:00)
[2023-04-13] MEDS: IPRATROPIUM BROM 0.5 MG/2.5 ML VIAL.NEB (ATROVENT) INH SCH ×6 (03:00→23:00)
[2023-04-13] MEDS: cefTRIAXone 1 GM IVPB PREMIX 50 ML IV SCH (05:36)
[2023-04-13] MEDS: NACL 0.9% 1,000 ML IV SCH ×2 (05:54→15:38)
[2023-04-13 07:30] LABS: BASOPHILS # (AUTO) 0.1 K/uL (0.0-0.2); BASOPHILS % (AUTO) 0.7 % (0.0-2.0); EOSINOPHILS # (AUTO) 0.4 K/uL (0.0-0.4); HEMATOCRIT 32.4 % (36-54); HEMOGLOBIN 10.6 g/dL (14.0-18.0); LYMPHOCYTES % (AUTO) 14.7 % (20.5-51.5); MEAN CORPUSCULAR HEMOGLOBIN 29 pg (27-31); MEAN CORPUSCULAR HGB CONC 33 % (32-36); MEAN CORPUSCULAR VOLUME 87 fL (79.0-98.0); MONOCYTES # (AUTO) 0.8 K/uL (0.0-1.0); MONOCYTES % (AUTO) 10.8 % (1.7-9.3); NEUTROPHILS # (AUTO) 4.8 K/uL (1.8-7.7); NEUTROPHILS % (AUTO) 67.8 % (40.0-70.0); PLATELET COUNT (AUTO) 164 K/uL (130-430); RED BLOOD CELL COUNT(AUTO) 3.74 MIL/uL (4.2-6.2); RED CELL DISTRIBUTION WIDTH 15.2 % (9.0-15.0); WHITE BLOOD COUNT (AUTO) 7.1 K/uL (4.8-10.8)
[2023-04-13 07:36] LABS: ANION GAP 13 (5-15); CALCIUM 8.4 mg/dL (8.4-11.0); CARBON DIOXIDE 21 mmol/L (23-29); CHLORIDE 108 mmol/L (98-107); CREATININE 2.17 mg/dL (0.55-1.30); GLUCOSE 100 mg/dL (74-106); POTASSIUM 4.2 mmol/L (3.5-5.1); SODIUM SERUM 142 mmol/L (136-145); UREA NITROGEN, BLOOD 42 mg/dL (8-21)
[2023-04-13] MEDS: ASPIRIN 81 MG TAB.CHEW PO SCH (08:04)
[2023-04-13] MEDS: PANTOPRAZOLE SODIUM 40 MG TAB PO SCH (08:04)
[2023-04-13] MEDS: CHOLECALCIFEROL (VITAMIN D-3) 400 UNIT TABLET PO SCH (08:04)
[2023-04-13] MEDS: CARVEDILOL 6.25 MG TABLET (COREG) PO SCH ×2 (08:10→20:32)
[2023-04-13] MEDS: guaiFENesin 200 MG/10 ML UDC PO PRN ×2 (10:40→17:39)
[2023-04-13] MEDS: VANCOMYCIN HCL 500 MG in NS 100 ML IV SCH (17:34)
[2023-04-13] MEDS: MONTELUKAST 10 MG TABLET PO SCH (17:37)
[2023-04-13] MEDS: ATORVASTATIN 20 MG TABLET PO SCH (20:33)
[2023-04-14] VITALS (10 sets, daily range): BP systolic 131–164; PULSE 52–78; RESP 16–18; TEMP 97.1–98.2; O2SAT 95–100
[2023-04-14] MEDS: ALBUTEROL SULFATE 0.083% 2.5 MG/3 ML VIAL.NEB INH SCH ×6 (03:00→23:00)
[2023-04-14] MEDS: IPRATROPIUM BROM 0.5 MG/2.5 ML VIAL.NEB (ATROVENT) INH SCH ×6 (03:00→23:00)
[2023-04-14 05:22] LABS: ERYTHROCYTE SEDIMENTATION RATE 27 MM/HR (0-15)
[2023-04-14 05:26] LABS: BASOPHILS % (AUTO) 0.8 % (0.0-2.0); EOSINOPHILS # (AUTO) 0.1 K/uL (0.0-0.4); EOSINOPHILS % (AUTO) 1.8 % (0.0-4.0); HEMATOCRIT 33.8 % (36-54); HEMOGLOBIN 11.1 g/dL (14.0-18.0); LYMPHOCYTES # (AUTO) 0.6 K/uL (1.0-5.5); LYMPHOCYTES % (AUTO) 9.8 % (20.5-51.5); MEAN CORPUSCULAR HEMOGLOBIN 28 pg (27-31); MEAN CORPUSCULAR HGB CONC 33 % (32-36); MEAN CORPUSCULAR VOLUME 86 fL (79.0-98.0); MONOCYTES # (AUTO) 0.6 K/uL (0.0-1.0); MONOCYTES % (AUTO) 9.8 % (1.7-9.3); NEUTROPHILS # (AUTO) 5.1 K/uL (1.8-7.7); NEUTROPHILS % (AUTO) 77.8 % (40.0-70.0); PLATELET COUNT (AUTO) 192 K/uL (130-430); RED BLOOD CELL COUNT(AUTO) 3.93 MIL/uL (4.2-6.2); RED CELL DISTRIBUTION WIDTH 15.3 % (9.0-15.0); WHITE BLOOD COUNT (AUTO) 6.5 K/uL (4.8-10.8)
[2023-04-14 05:55] LABS: ANION GAP 14 (5-15); CALCIUM 8.6 mg/dL (8.4-11.0); CARBON DIOXIDE 21 mmol/L (23-29); CHLORIDE 108 mmol/L (98-107); CREATININE 2.01 mg/dL (0.55-1.30); GLUCOSE 155 mg/dL (74-106); PHOSPHORUS 4.3 mg/dL (2.7-4.5); POTASSIUM 4.3 mmol/L (3.5-5.1); SODIUM SERUM 143 mmol/L (136-145); UREA NITROGEN, BLOOD 35 mg/dL (8-21)
[2023-04-14] MEDS: ASPIRIN 81 MG TAB.CHEW PO SCH (08:44)
[2023-04-14] MEDS: CHOLECALCIFEROL (VITAMIN D-3) 400 UNIT TABLET PO SCH (08:44)
[2023-04-14] MEDS: CARVEDILOL 6.25 MG TABLET (COREG) PO SCH ×2 (08:46→20:27)
[2023-04-14] MEDS: PANTOPRAZOLE SODIUM 40 MG TAB PO SCH (08:46)
[2023-04-14] MEDS ORDERED: CEFEPIME 1 GM in D5W 50 ML IV SCH (09:00)
[2023-04-14] MEDS: NACL 0.9% 1,000 ML IV SCH ×2 (11:37→17:41)
[2023-04-14] MEDS: INSULIN REGULAR, HUMAN 100 UNITS/ML, 3 ML VIAL (humuLIN R) SUBCUT PRN (12:40)
[2023-04-14] MEDS: MONTELUKAST 10 MG TABLET PO SCH (17:22)
[2023-04-14] MEDS: VANCOMYCIN HCL 500 MG in NS 100 ML IV SCH (17:23)
[2023-04-14] MEDS: ATORVASTATIN 20 MG TABLET PO SCH (20:26)
[2023-04-14] MEDS: guaiFENesin 200 MG/10 ML UDC PO PRN (20:29)
[2023-04-15] VITALS (10 sets, daily range): BP systolic 146–165; PULSE 56–70; RESP 16–18; TEMP 97.6–99.3; O2SAT 96–100
[2023-04-15] MEDS: IPRATROPIUM BROM 0.5 MG/2.5 ML VIAL.NEB (ATROVENT) INH SCH ×6 (03:00→23:23)
[2023-04-15] MEDS: ALBUTEROL SULFATE 0.083% 2.5 MG/3 ML VIAL.NEB INH SCH ×6 (03:00→23:23)
[2023-04-15 07:50] LABS: BASOPHILS # (AUTO) 0.1 K/uL (0.0-0.2); BASOPHILS % (AUTO) 0.7 % (0.0-2.0); EOSINOPHILS # (AUTO) 0.4 K/uL (0.0-0.4); EOSINOPHILS % (AUTO) 5.8 % (0.0-4.0); HEMATOCRIT 31.9 % (36-54); HEMOGLOBIN 10.4 g/dL (14.0-18.0); LYMPHOCYTES # (AUTO) 0.8 K/uL (1.0-5.5); LYMPHOCYTES % (AUTO) 10.8 % (20.5-51.5); MEAN CORPUSCULAR HEMOGLOBIN 28 pg (27-31); MEAN CORPUSCULAR HGB CONC 33 % (32-36); MEAN CORPUSCULAR VOLUME 86 fL (79.0-98.0); MONOCYTES # (AUTO) 0.6 K/uL (0.0-1.0); MONOCYTES % (AUTO) 7.7 % (1.7-9.3); NEUTROPHILS # (AUTO) 5.7 K/uL (1.8-7.7); PLATELET COUNT (AUTO) 193 K/uL (130-430); RED BLOOD CELL COUNT(AUTO) 3.71 MIL/uL (4.2-6.2); RED CELL DISTRIBUTION WIDTH 15.4 % (9.0-15.0); WHITE BLOOD COUNT (AUTO) 7.6 K/uL (4.8-10.8)
[2023-04-15 08:06] LABS: ALANINE AMINOTRANSFERASE 50 U/L (12-78); ALBUMIN 2.5 g/dL (3.4-4.8); ANION GAP 10 (5-15); ASPARTATE AMINOTRANSFERASE 39 U/L (10-37); CALCIUM 7.5 mg/dL (8.4-11.0); CARBON DIOXIDE 22 mmol/L (23-29); CHLORIDE 106 mmol/L (98-107); CREATININE 1.45 mg/dL (0.55-1.30); GLUCOSE 73 mg/dL (74-106); PHOSPHORUS 3.1 mg/dL (2.7-4.5); POTASSIUM 3.8 mmol/L (3.5-5.1); SODIUM SERUM 138 mmol/L (136-145); TOTAL BILIRUBIN 0.3 mg/dL (0.0-1.0); TOTAL PROTEIN, SERUM 6.4 g/dL (6.4-8.3); UREA NITROGEN, BLOOD 25 mg/dL (8-21)
[2023-04-15 08:16] LABS: ERYTHROCYTE SEDIMENTATION RATE 36 MM/HR (0-15)
[2023-04-15] MEDS: ASPIRIN 81 MG TAB.CHEW PO SCH (09:29)
[2023-04-15] MEDS: PANTOPRAZOLE SODIUM 40 MG TAB PO SCH (09:29)
[2023-04-15] MEDS: CHOLECALCIFEROL (VITAMIN D-3) 400 UNIT TABLET PO SCH (09:29)
[2023-04-15] MEDS ORDERED: LOSARTAN POTASSIUM 50 MG TABLET (COZAAR) PO ONE (10:30)
[2023-04-15] MEDS ORDERED: amLODIPine BESYLATE 10 MG TABLET PO ONE (10:30)
[2023-04-15] MEDS: INSULIN REGULAR, HUMAN 100 UNITS/ML, 3 ML VIAL (humuLIN R) SUBCUT PRN (12:20)
[2023-04-15] MEDS: NACL 0.9% 1,000 ML IV SCH (15:57)
[2023-04-15] MEDS: VANCOMYCIN HCL 500 MG in NS 100 ML IV SCH (17:30)
[2023-04-15] MEDS: MONTELUKAST 10 MG TABLET PO SCH (17:30)
[2023-04-15] MEDS: ATORVASTATIN 20 MG TABLET PO SCH (20:49)
[2023-04-16] VITALS (7 sets, daily range): BP systolic 142–166; PULSE 55–59; RESP 18; TEMP 97.7–98.2; O2SAT 96–100
[2023-04-16] MEDS: ALBUTEROL SULFATE 0.083% 2.5 MG/3 ML VIAL.NEB INH SCH ×3 (03:00→11:22)
[2023-04-16] MEDS: IPRATROPIUM BROM 0.5 MG/2.5 ML VIAL.NEB (ATROVENT) INH SCH ×3 (03:00→11:22)
[2023-04-16] MEDS: NACL 0.9% 1,000 ML IV SCH (05:43)
[2023-04-16 06:36] LABS: ERYTHROCYTE SEDIMENTATION RATE 40 MM/HR (0-15)
[2023-04-16 06:40] LABS: BASOPHILS % (AUTO) 0.7 % (0.0-2.0); EOSINOPHILS # (AUTO) 0.4 K/uL (0.0-0.4); EOSINOPHILS % (AUTO) 6.5 % (0.0-4.0); HEMATOCRIT 32.4 % (36-54); HEMOGLOBIN 10.8 g/dL (14.0-18.0); LYMPHOCYTES # (AUTO) 0.9 K/uL (1.0-5.5); LYMPHOCYTES % (AUTO) 14.7 % (20.5-51.5); MEAN CORPUSCULAR HEMOGLOBIN 29 pg (27-31); MEAN CORPUSCULAR HGB CONC 33 % (32-36); MEAN CORPUSCULAR VOLUME 86 fL (79.0-98.0); MONOCYTES # (AUTO) 0.5 K/uL (0.0-1.0); MONOCYTES % (AUTO) 8.3 % (1.7-9.3); NEUTROPHILS # (AUTO) 4.4 K/uL (1.8-7.7); NEUTROPHILS % (AUTO) 69.8 % (40.0-70.0); PLATELET COUNT (AUTO) 200 K/uL (130-430); RED BLOOD CELL COUNT(AUTO) 3.76 MIL/uL (4.2-6.2); RED CELL DISTRIBUTION WIDTH 15.2 % (9.0-15.0); WHITE BLOOD COUNT (AUTO) 6.3 K/uL (4.8-10.8)
[2023-04-16 07:10] LABS: ANION GAP 7 (5-15); CALCIUM 7.3 mg/dL (8.4-11.0); CARBON DIOXIDE 23 mmol/L (23-29); CHLORIDE 105 mmol/L (98-107); CREATININE 1.38 mg/dL (0.55-1.30); GLUCOSE 115 mg/dL (74-106); PHOSPHORUS 3.1 mg/dL (2.7-4.5); POTASSIUM 3.6 mmol/L (3.5-5.1); SODIUM SERUM 135 mmol/L (136-145); UREA NITROGEN, BLOOD 20 mg/dL (8-21)
[2023-04-16] MEDS: PANTOPRAZOLE SODIUM 40 MG TAB PO SCH (08:27)
[2023-04-16] MEDS: CHOLECALCIFEROL (VITAMIN D-3) 400 UNIT TABLET PO SCH (08:27)
[2023-04-16] MEDS: ASPIRIN 81 MG TAB.CHEW PO SCH (08:27)
[2023-04-16] MEDS ORDERED: amLODIPine BESYLATE 10 MG TABLET PO SCH (09:00)
[2023-04-16] MEDS ORDERED: LOSARTAN POTASSIUM 50 MG TABLET (COZAAR) PO SCH (09:00)
[2023-04-16] MEDS ORDERED: VANCOMYCIN HCL 1,000 MG in NS 250 ML IV SCH (09:00)
[2023-04-16] MEDS ORDERED: LEVO250T73 PO (10:10)
[2023-04-16] MEDS: INSULIN REGULAR, HUMAN 100 UNITS/ML, 3 ML VIAL (humuLIN R) SUBCUT PRN (11:37)
[2023-04-21] MEDS ORDERED: HYDR-500 PO (15:34)
[2023-04-21] MEDS ORDERED: AMLO5TAB4 PO (15:34)
[2023-04-21] MEDS ORDERED: EZET10TA PO (15:34)
[2023-04-23] MEDS ORDERED: PANT40TA45 PO (10:55)
[2023-04-24] MEDS ORDERED: SUCR1TAB2 PO (07:29)
[2023-04-24] MEDS ORDERED: PRO40 PO (07:29)
== END 2023-04-16 15:00 | disposition home health service (06) | DRG 871 ==
LOC: SED 01:22 → STU 03:46 → SMU 04-14 06:53
PROVIDERS: ADMIT Preventive Medicine Preventive Medicine/Occupational Environmental Medicine; ATTEND Preventive Medicine Preventive Medicine/Occupational Environmental Medicine
DX: A41.9 Sepsis, unspecified organism (principal); E43 Unspecified severe protein-calorie malnutrition; J96.01 Acute respiratory failure with hypoxia; I50.33 Acute on chronic diastolic (congestive) heart failure; E87.1 Hypo-osmolality and hyponatremia; N13.6 Pyonephrosis; E87.20 Acidosis, unspecified; I13.0 Hypertensive heart and chronic kidney disease with heart failure and stage 1 through stage 4 chronic kidney disease, or unspecified chronic kidney disease; N39.0 Urinary tract infection, site not specified; N17.9 Acute kidney failure, unspecified; E83.51 Hypocalcemia; Z20.822 Contact with and (suspected) exposure to COVID-19; E83.52 Hypercalcemia; N40.0 Benign prostatic hyperplasia without lower urinary tract symptoms; I25.10 Atherosclerotic heart disease of native coronary artery without angina pectoris; D64.9 Anemia, unspecified; E88.09 Other disorders of plasma-protein metabolism, not elsewhere classified; J20.9 Acute bronchitis, unspecified; N18.9 Chronic kidney disease, unspecified; B95.8 Unspecified staphylococcus as the cause of diseases classified elsewhere; Z95.1 Presence of aortocoronary bypass graft; Z90.79 Acquired absence of other genital organ(s); Z68.24 Body mass index [BMI] 24.0-24.9, adult
CPT/HCPCS: 36415; 71045; 71275; 76376; 80048; 80053; 80202; 81000; 82962; 83605; 83735; 83880; 84100; 84484; 85025; 85379; 85610-TC; 85651-TC; 87040; 87086; 93005; 93306; 94640; 94760; 96365; 99291; G0378; J0692; J0696; J3370; J7050; J7060; Q9967